=== PATIENT | male | born 1975 | race American Indian/Alaskan Native ===

== ENCOUNTER 2021-10-02 09:10 | Emergency (ER) | payer SELFPAY ==
[2021-10-02 09:37] VITALS: BP 121/77
--- NOTE | 2021-10-02 10:01 | Emergency Department Report ---
ED General Adult HPI - General Chief complaint: Medical Clearance Stated complaint: DIALYSIS NEEDED Time Seen by Provider: 10/02/21 09:43 Source: patient Mode of arrival: Ambulatory Limitations: No Limitations - History of Present Illness Initial comments: 45-year-old -[place] male with a past medical history of type 2 diabetes, hypertension, CHF, end-stage renal disease currently on hemodialysis Tuesdays, and Saturdays presents to the ER from [facility] for dialysis. Patient and patient's mother reports that patient was recently started on dialysis during his hospitalization back in [place] in August after being admitted for worsening fluid retention worsening renal functions and CHF. She states that patient moved from [place] to [place] to be with family, and he started going to the [facility] for dialysis. His first visit was last during which time they did do some labs. He was scheduled to go for dialysis today, but they told him that his test was positive for hepatitis and that they could not do dialysis and recommended that he comes to the hospital for dialysis in isolation and repeating hepatitis panel because his lab work was completely normal back in August. Patient reports that he was never told in the past he had no issues with his liver has never been diagnosed with hepatitis. He denies alcohol abuse any acetaminophen abuse. Patient reports no chest pain, shortness of breath, swelling or any abdominal pain nor any nausea, vomiting or diarrhea. Mom and patient reports that they have not establish with a hand cloth examiner locally since moving from [place]. Complaint: Sent by dialysis clinic for dialysis; sent for recheck of hepatitis panel -: days(s) ED Review of Systems ROS: Stated complaint: DIALYSIS NEEDED Other details as noted in HPI Comment: All other systems reviewed and negative Constitutional: denies: chills, diaphoresis, fever, malaise, weakness Eyes: denies: eye pain, eye discharge, vision change ENT: denies: ear pain, throat pain, dental pain, hearing loss, epistaxis, congestion Respiratory: denies: cough, shortness of breath, SOB with exertion, SOB at rest, wheezing Cardiovascular: denies: chest pain, palpitations, dyspnea on exertion, edema, syncope, paroxysmal nocturnal dyspnea Gastrointestinal: denies: abdominal pain, nausea, diarrhea, constipation, hematemesis, melena, hematochezia Genitourinary: denies: urgency, dysuria, frequency, hematuria, discharge, t esticular pain, testicular mass Musculoskeletal: denies: back pain, joint swelling, arthralgia Skin: denies: rash, lesions Neurological: denies: headache, weakness, numbness, paresthesias, confusion, abnormal gait, vertigo Psychiatric: denies: anxiety, depression, auditory hallucinations, visual ashish lucinations, homicidal thoughts, suicidal thoughts Hematological/Lymphatic: denies: easy bleeding, easy bruising, swollen glands ED Past Medical Hx - Past Medical History Previous Medical History?: Yes Hx Hypertension: Yes Hx Congestive Heart Failure: Yes Hx Diabetes: Yes Hx Renal Disease: Yes (ON HD) Additional medical history: CHF, Poor memory - Surgical History Past Surgical History?: Yes Additional Surgical History: Right chest perm cath for dialysis ED Physical Exam - General Limitations: No Limitations General appearance: alert, in no apparent distress, other (Chronically ill- appearing) - Head Head exam: Present: atraumatic, normocephalic, normal inspection - Eye Eye exam: Present: normal appearance, PERRL, EOMI Pupils: Present: normal accommodation - Neck Neck exam: Present: normal inspection, full ROM. Absent: meningismus - Respiratory Respiratory exam: Present: normal lung sounds bilaterally. Absent: respiratory distress, wheezes, rales - Cardiovascular Cardiovascular Exam: Present: regular rate, normal rhythm, normal heart sounds - GI/Abdominal GI/Abdominal exam: Present: soft. Absent: distended, tenderness, guarding - Neurological Exam Neurological exam: Present: alert, oriented X3, CN II-XII intact, normal gait - Psychiatric Psychiatric exam: Present: normal affect, normal mood - Skin Skin exam: Present: intact ED Course Vital Signs 10/02/21 09:29 Temperature 98.6 F Pulse Rate 75 Respiratory 18 Rate Blood Pressure 121/77 O2 Sat by Pulse 99 Oximetry ED Medical Decision Making - Lab Data Result diagrams: 10/02/21 10:19 10/02/21 10:19 Laboratory Tests 10/02/21 10/02/21 10/02/21 10:19 10:19 10:19 WBC 6.9 RBC 3.64 L Hgb 10.3 L Hct 31.6 L MCV 87 MCH 28 MCHC 33 RDW 16.8 H Plt Count 227 Lymph % (Auto) 18.9 Levy % (Auto) 9.5 H Eos % (Auto) 2.3 Baso % (Auto) 0.7 Lymph # (Auto) 1.3 Levy # (Auto) 0.7 Eos # (Auto) 0.2 Baso # (Auto) 0.0 Seg Neutrophils % 68.6 Seg Neutrophils # 4.7 Sodium 136 L Potassium 4.5 Chloride 96.6 L Carbon Dioxide 21 L Anion Gap 23 BUN 75 H Creatinine 8.5 H Estimated GFR 8 BUN/Creatinine Ratio 9 Glucose 146 H Calcium 9.4 Total Bilirubin 0.60 AST 25 ALT 26 Alkaline Phosphatase 158 H Total Protein 8.8 H Albumin 4.2 Albumin/Globulin Ratio 0.9 Hepatitis A IgM Ab Non-reactive Hep Bs Antigen Non-reactive Hep B Core IgM Ab Non-reactive Hepatitis C Antibody Non-reactive - Medical Decision Making Labs reviewed --CBC and CMP consistent with his chronic renal disease. His potassium today is normal. Liver enzymes are normal. Hepatitis panel is normal. Patient has no chest pain, shortness of breath and no swelling. His vital signs are stable. Discussed case with Dr. Eleazar Teague, there is no indication for emergent dialysis. Recommend consulting his hand cloth examiner. Called the [facility] on [facility] [place], spoke to the nurse, he informed me that patient hepatitis B was positive, and that is why sent to the ER. Informed him that his hepatitis panel today is negative and there is no indication for emergent dialysis today and asked him to see if patient can come in tomorrow for dialysis but he reported that they are closed tomorrow and will have to be Monday. Nurse request that we send patient home with a copy of his labs. Found out from the nurse that patient's hand cloth examiner is Dr. Rey with [facility]. 1335: Spoke with Dr Zhao, hand cloth examiner showroom salesperson for [facility], reviewed case as well as lab results with him. He agree patient does not need emergent dialysis at this time and is okay with patient getting dialysis on Monday. Patient will be given a copy of his lab results. 1351: Discussed results with patient and mom. Discussed recommendation per discussion with hand cloth examiner with patient and mom. Patient understands that he will need to follow-up on Monday to get dialysis. He was instructed to bring a copy of his lab results to dialysis clinic when he goes in on Monday. Patient instructed that he needs to restrict his fluid and salt intake today and tomorrow. He understands to return if anything changes or worsens. Patient was stable at time of discharge. Critical care attestation.: If time is entered above; I have spent that time in minutes in the direct care of this critically ill patient, excluding procedure time. ED Disposition Clinical Impression: End stage renal disease on dialysis Disposition: HOME / SELF CARE / HOMELESS Is pt being admited?: No Does the pt Need Aspirin: No Condition: Stable Instructions: Dialysis Additional Instructions: Recommend that you follow-up with the [facility] on Monday to get dialysis. Bring copy of the results with you to your appointment. Return to the ER if any symptoms changes or worsens. Referrals: PRIMARY CARE, [Primary Care Provider] - 3-5 Days Time of Disposition: 13:36
[2021-10-02 10:47] LABS: Basophils % (Auto) 0.7 % (0.0-1.8); Eosinophils # (Auto) 0.2 K/mm3 (0.0-0.4); Eosinophils % (Auto) 2.3 % (0.0-4.3); Hematocrit 31.6 % (35.5-45.6); Hemoglobin 10.3 gm/dl (11.8-15.2); Lymphocytes # (Auto) 1.3 K/mm3 (1.2-5.4); Lymphocytes % (Auto) 18.9 % (13.4-35.0); Mean Corpuscular HGB Conc 33 % (32-34); Mean Corpuscular Volume 87 fl (84-94); Monocytes # (Auto) 0.7 K/mm3 (0.0-0.8); Monocytes % (Auto) 9.5 % (0.0-7.3); Platelet Count 227 K/mm3 (140-440); Red Blood Count 3.64 M/mm3 (3.65-5.03); Red Cell Distribution Width 16.8 % (13.2-15.2)
[2021-10-02 11:09] LABS: Albumin 4.2 g/dL (3.9-5); Calcium 9.4 mg/dL (8.4-10.2)
[2021-10-02 11:22] LABS: Hepatitis B Surface Antigen Non-Reactive (Negative); Hepatitis C Virus Antibody Non-Reactive (NonReactive)
== END 2021-10-02 13:30 | disposition home or self-care (01) ==
LOC: ED 09:10
DX: I13.2 Hypertensive heart and chronic kidney disease with heart failure and with stage 5 chronic kidney disease, or end stage renal disease (principal); E11.22 Type 2 diabetes mellitus with diabetic chronic kidney disease; N18.6 End stage renal disease; I50.9 Heart failure, unspecified; Z99.2 Dependence on renal dialysis; Z79.899 Other long term (current) drug therapy
CPT/HCPCS: 36415; 80053; 80074; 85025; 99283